=== PATIENT | male | born 2000 | race Caucasian/White ===

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

== ENCOUNTER 2019-03-23 11:47 | Emergency (ER) | payer OTHER ==
--- NOTE | 2019-03-23 11:57 | ED ---
Altered Mental Status - HPI Summary HPI Summary: Patient is a 18 y/o M presenting to [facility] via EMS for decreased responsiveness. 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 He sustained a laceration to his right ear. EMS reports no fluid from ear. The patient admits to consumption of alcohol and usage of marijuana and not-prescribed alprazolam. He claims to have taken only one tablet of alprazolam. He is inconsistent with when he took this tablet. EMS reports the patient was sluggish and his pupils were reactive and sluggish. BG was 88. PMHx of anxiety and depression is noted. He is supposed to take Lexapro , but is not compliant with this medication. He denies chest pain and SOB. He states that he wants to sleep "so bad". He denies intentional overdose and states that he has "really bad anxiety". Home medications and allergies are reviewed. - History Of Current Complaint Stated Complaint: RT EAR LAC FROM FALL PER EMS Time Seen by Provider: 03/23/19 11:49 Hx Obtained From: Patient, EMS Onset/Duration: Still Present Timing: Constant Character: Responsiveness Aggravating Factor(s): Drug Abuse Associated Signs And Symptoms: Positive: Negative - Allergies/Home Medications Allergies/Adverse Reactions: Allergies Allergy/AdvReac Type Severity Reaction Status Date / Time No Known Allergies Allergy Verified 03/23/19 12:02 Home Medications: Home Medications NK [No Home Medications Reported] 03/23/19 [History Confirmed 03/23/19] PMH/Surg Hx/FS Hx/Imm Hx Endocrine/Hematology History: Denies: Hx Anticoagulant Therapy Cardiovascular History: Denies: Hx Cardiac Arrest History: Denies: Hx Dialysis Neurological History: Denies: Hx CVA - Family History Known Family History: Negative: Seizure Disorder - Social History Alcohol Use: Occasionally Substance Use Type: Reports: Marijuana Smoking Status (MU): Unknown if Ever Smoked Review of Systems Constitutional: Other - groggy, decreased responsiveness, consumption of alcohol , marijuana, and alprazolam Eyes: Other - sluggish pupils ENT: Other - no fluid in ear Skin: Other - laceration to right ear Positive: Syncope All Other Systems Reviewed And Are Negative: Yes Physical Exam - Summary Physical Exam Summary: VITAL SIGNS: Reviewed. GENERAL: Patient is a well-developed and nourished male who is lying in the stretcher. He is groggy and appears to be under the influence of substances. Patient is not in any acute respiratory distress. HEAD AND FACE: No signs of trauma. No ecchymosis, hematomas or skull depressions. No sinus tenderness. EYES: PERRLA, EOMI x 2, No injected conjunctiva, no nystagmus. EARS: Hearing grossly intact. Ear canals and tympanic membranes are within normal limits. There is a 2.5 cm laceration of the right inner earlobe with no blood seen in the ear. MOUTH: Oropharynx within normal limits. NECK: Supple, trachea is midline, no adenopathy, no JVD, no carotid bruit, no c- spine tenderness, neck with full ROM. CHEST: Symmetric, no tenderness at palpation. LUNGS: Clear to auscultation bilaterally. No wheezing or crackles. CVS: Regular rate and rhythm, S1 and S2 present, no murmurs or gallops appreciated. ABDOMEN: Soft, non-tender. No signs of distention. No rebound, no guarding, and no masses palpated. Bowel sounds are normal. EXTREMITIES: FROM in all major joints, no edema, no cyanosis or clubbing. NEURO: Alert and oriented x 3. Patient is groggy and appears to be under the influence of substances. GCS 15. SKIN: Dry and warm. Triage Information Reviewed: Yes Vital Signs On Initial Exam: Initial Vitals Pulse Resp BP Pulse Ox 83 21 127/71 97 03/23/19 11:52 03/23/19 11:52 03/23/19 11:52 03/23/19 11:52 Vital Signs Reviewed: Yes - Lyman Coma Scale Best Eye Response: 4 - Spontaneous Best Motor Response: 6 - Obeys Commands Best Verbal Response: 5 - Oriented Coma Scale Total: 15 Procedures - Sedation Patient Received Moderate/Deep Sedation with Procedure: No Diagnostics - Laboratory Result Diagrams: 03/23/19 12:25 03/23/19 12:25 Lab Statement: Any lab studies that have been ordered have been reviewed, and results considered in the medical decision making process. - Radiology CXR Radiology Interpretation Completed By: Radiologist Summary of Radiographic Findings: CXR IMPRESSION: NO EVIDENCE FOR ACTIVE CARDIOPULMONARY DISEASE. THIS REPORT WAS REVIEWED BY DR. PHILIP. - CT BRAIN CT CT Interpretation Completed By: Radiologist Summary of CT Findings: BRAIN CT IMPRESSION: #. No CT evidence for traumatic brain injury or acute intracranial process. THIS REPORT WAS REVIEWED BY DR. PHILIP. CERVICAL SPINE CT CT Interpretation Completed By: Radiologist Summary of CT Findings: CERVICAL SPINE CT. IMPRESSION: NO ACUTE OSSEOUS INJURY TO THE CERVICAL SPINE. THIS REPORT WAS REVIEWED BY DR. PHILIP. - EKG 1654 Cardiac Rate: NL - rate of 64 BPM EKG Rhythm: Sinus Rhythm Summary of EKG Findings: EKG showed NSR with rate of 64 BPM, no ST elevations. EKG has been reviewed and interpreted by ED physician. Re-Evaluation - Re-Evaluation First Eval Re-Evaluation Time: 16:11 Change: Improved Comment: He is alert and oriented x3 at present and states that he wants to go home. PO challenge to be done. Second Eval Re-Evaluation Time: 17:22 Change: Improved Comment: Patient is alert and oriented 3. The patient is sober. The patient is ambulating with good steady walk. The patient is eating and drinking without any nausea or vomiting. At this time I asked the patient if he has any suicidal or homicidal ideations and he denies. He reports that he has been under a lot of stress and he hasnt slept for a couple days well and he took 1 Alprazolam for stress. He is the patient is alert oriented 3. Patient was discharged home with follow-up with PCP. At this point I discussed all the findings and test results with the patient. He was instructed to return to the emergency room immediately if any of the symptoms return or worsen. Patient understand and agree. Neurological exam before discharge: Patient is alert and oriented x 3. No acute neurological deficits. Patient's vital signs are stable. Patient is to follow up with CPP in the next 2 3 days. They understand and agree. Plan of care was discussed with the patient and patient understands and agrees with the plan of care. All questions were answered at patient satisfaction. There were no further complaints or concerns. Altered Mental Statu Course/Dx - Course Assessment/Plan: 18-year-old male presents to the emergency department via ambulance with a chief complaint of have taken an unknown amount of alprazolam. The patient is very lethargic unable to give a good history. Spoke with poison control and they recommend symptomatic treatment and observed the patient and he is sober. Blood test results without any significant abnormality except for urine toxicology positive for benzodiazepines, cannabinoids and a serum alcohol level of 15. The patient is a laceration in the right ear which was repaired by Joe LOPEZ. please see her note. Head CT IMPRESSION: #. No CT evidence for traumatic brain injury or acute intracranial process. C spine CT IMPRESSION: NO ACUTE OSSEOUS INJURY TO THE CERVICAL SPINE. CXR IMPRESSION: NO EVIDENCE FOR ACTIVE CARDIOPULMONARY DISEASE. In the ED course the patient was given IV fluids. The patient is hemodynamically stable. The patient is resting comfortably. At approximately 5 :30 PM the patient is alert and oriented 3. The patient is sober. The patient is ambulating with good steady walk. The patient is eating and drinking without any nausea or vomiting. At this time I asked the patient if he has any suicidal or homicidal ideations and he denies. He reports that he has been under a lot of stress and he hasnt slept for a couple days well and he took 1 Alprazolam for stress. He is the patient is alert oriented 3. Patient was discharged home with follow-up with PCP. At this point I discussed all the findings and test results with the patient. He was instructed to return to the emergency room immediately if any of the symptoms return or worsen. Patient understand and agree. Neurological exam before discharge: Patient is alert and oriented x 3. No acute neurological deficits. Patient's vital signs are stable. Patient is to follow up with PCP in the next 2 3 days. They understand and agree. Plan of care was discussed with the patient and patient understands and agrees with the plan of care. All questions were answered at patient satisfaction. There were no further complaints or concerns. - Diagnoses Provider Diagnoses: Accidental overdose Discharge ED - Sign-Out/Discharge Documenting (check all that apply): Patient Departure - discharge - Discharge Plan Condition: Stable Disposition: HOME Patient Education Materials: Polysubstance Abuse (ED) Referrals: [facility] @ [Outside] Additional Instructions: PLEASE RETURN TO ED FOR ANY NEW OR WORSENING SYMPTOMS. PLEASE FOLLOW UP WITH YOUR PRIMARY CARE PHYSICIAN WITHIN THREE DAYS. - Billing Disposition and Condition Condition: STABLE Disposition: Home - Attestation Statements Document Initiated by Scribe: Yes Documenting Scribe: HENRRY CHAMPAGNE Provider For Whom Scribe is Documenting (Include Credential): IGNACIO PHILIP MD Scribe Attestation: HENRRY Villanueva, scribed for IGNACIO PHILIP MD on 03/25/19 at 0918. Scribe Documentation Reviewed: Yes Provider Attestation: The documentation as recorded by the [email or web address] accurately reflects the service I personally performed and the decisions made by me, IGNACIO PHILIP MD Status of Scribe Document: Viewed
[2019-03-23 12:44] LABS: ABS Basophils 0.1 10^3/ul (0-0.2); ABS Eosinophils 0.1 10^3/ul (0-0.6); ABS Lymphocytes 1.4 10^3/ul (1.0-4.8); ABS Monocytes 0.4 10^3/ul (0-0.8); ABS Neutrophils 5.5 10^3/ul (1.5-7.7); Eosinophil % 1.5 %; Hematocrit 47 % (42-52); Hemoglobin 15.9 g/dL (14.0-18.0); Lymphocyte % 18.5 %; Mean Corpuscular HGB Conc 34 g/dL (31-36); Mean Corpuscular Hemoglobin 29 pg (27-31); Mean Corpuscular Volume 87 fL (80-94); Mean Platelet Volume 7.7 fL (7.4-10.4); Nucleated Red Blood Cells % 0.1; Platelet Count 264 10^3/uL (150-450); Red Blood Count 5.43 10^6 /uL (4.18-5.48); Red Cell Distribution Width 13 % (10-15); White Blood Count 7.4 10^3/uL (3.5-10.8)
[2019-03-23 13:01] LABS: ALT 18 U/L (7-52); AST 25 U/L (13-39); Albumin 4.8 g/dL (3.2-5.2); Albumin/Globulin Ratio 1.9 (1-3); Alkaline Phosphatase 58 U/L (34-104); Anion Gap 6 mmol/L (2-11); BUN/Creatinine Ratio 11.2 (8-20); Blood Urea Nitrogen 13 mg/dL (6-24); CO2 Carbon Dioxide 30 mmol/L (22-32); Calcium 9.5 mg/dL (8.6-10.3); Chloride 105 mmol/L (101-111); Creatine Kinase 186 U/L (10-223); EGFR African American 98.1 (>60); EGFR Non-African American 81.1 (>60); Globulin 2.5 g/dL (2-4); Glucose 91 mg/dL (70-100); Sodium 141 mmol/L (135-145); Total Protein 7.3 g/dL (6.4-8.9)
[2019-03-23 13:02] LABS: Acetaminophen < 15 mcg/mL; Alcohol 15 mg/dL (<10); Salicylate < 2.50 mg/dL (<30)
[2019-03-23] MEDS: NS 0.9% 1000 ML** 1,000 ML IV ONE (13:10)
[2019-03-23 13:16] LABS: TSH (Thyroid Stimulating Horm) 1.23 mcIU/mL (0.34-5.60)
[2019-03-23] MEDS: Lidocaine 1% MPF ** 5 ML VIAL INJ ONE (13:39)
--- NOTE | 2019-03-23 14:13 | PN ---
Progress Note - Progress Note Date of Service: 03/23/19 Note: Laceration repair: 2cm linear laceration to superior pinna was anesthetized with 3cc of 1% lidocaine. Cleaned with betadine. 5 6-0 prolene sutures placed. Performed in sterile fashion. Pt. tolerated well.
[2019-03-23 14:15] LABS: Urine Benzodiazepine Screen Presumptive Positive (None Detect); Urine Opiates Screen None Detected (None Detect)
[2019-03-23 17:55] VITALS: BP 103/66
== END 2019-03-23 17:35 | disposition home or self-care (01) ==
LOC: ED 11:47
DX: T50.991A Poisoning by other drugs, medicaments and biological substances, accidental (unintentional), initial encounter (principal); Y92.9 Unspecified place or not applicable
CPT/HCPCS: 36415; 70450; 71045; 72125; 80053; 80307; 80320; 80329; 82550; 83605; 84443; 85025; 93005; 99283; G0480